=== PATIENT | female | born 1975 | race Caucasian/White ===

== ENCOUNTER 2016-07-05 12:23 | Inpatient (IN) ==
--- NOTE | 2016-07-05 12:55 | Emergency Department Note ---
Disposition Clinical Impression: Unable to ambulate Pelvic fracture Qualifiers: Encounter type: initial encounter Pelvic bone location: acetabulum Sublocation of acetabulum: unspecified portion of acetabulum Fracture type: closed Fracture alignment: nondisplaced Laterality: right Qualified Code(s): S32.401A - Unspecified fracture of right acetabulum, initial encounter for closed fracture Disposition: Admitted As Inpatient Condition: Fair Time of Disposition: 18:20 Fall HPI - General Chief Complaint: ED Extremity Injury, Lower Stated Complaint: Fall Time Seen by Provider: 07/05/16 12:30 Source: patient, EMS Nursing Notes Reviewed: Yes Vital Signs Reviewed: Yes - History of Present Illness HPI Narrative: 41-year-old female history of MRDD, walks a baseline with a walker, her mother' s her primary historian, patient apparently patient had a slip and had a mechanical fall however is questionable. She may have hit her head, she landed onto her right hip. Patient had a previous right hip surgery with Dr. Mitchell this summer 7-8 months ago. Patient reports right hip pain. Patient cannot bear weight on her right lower extremity. Patient denies confusion weakness chest pain shortness breath or abdominal pain. 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 From: standing Fall Witnessed: no Place Fall Occurred: home Loss of Consciousness: unsure Prolonged Down Time?: no Symptoms Prior to Fall: none Context: tripped/slipped Location of injury: head Location of injury - extremities: Right: hip Severity: moderate Severity scale (1-10): 6 Quality: aching Associated symptoms (after fall): Denies: headache, neck pain, numbness, weakness - Related Data Home Medications Medication Instructions Recorded Confirmed Calcium Carbonate/Vitamin D3 1 tab PO DAILY 09/06/15 09/06/15 [Calcium 500-Vit D3 400 Tablet] Esomeprazole Magnesium [Nexium] 40 mg PO DAILY 09/06/15 09/06/15 LORazepam [Ativan] 0.5 mg PO DAILY PRN 09/06/15 09/06/15 Lacosamide [Vimpat] 50 mg PO BID 09/06/15 09/06/15 Lamotrigine [Lamictal] 300 mg PO TID 09/06/15 09/06/15 LevETIRAcetam [Keppra] 1,500 mg PO BID 09/06/15 09/06/15 Levothyroxine [Synthroid] 100 mcg PO QAM 09/06/15 09/06/15 Multivit,Th Iron,Other Min 1 tab PO DAILY 09/06/15 09/06/15 [Therems-M] Norethindrone-E.estradiol-Iron 1 tab PO DAILY 09/06/15 09/06/15 [Microgestin Fe 1-20 Tablet] Phenytoin ER [Dilantin ER] 100 mg PO BID 09/06/15 09/06/15 Potassium Chloride [K-Tab ER] 10 meq PO DAILY 09/06/15 09/06/15 Zonisamide [Zonegran] 100 mg PO TID 09/06/15 09/06/15 Previous Rx's Medication Instructions Recorded Enoxaparin [Lovenox] 40 mg SQ 0600 #12 syringe 09/09/15 Megestrol Acetate [Megace] 400 mg PO DAILY #20 each 09/10/15 Allergies Allergy/AdvReac Type Severity Reaction Status Date / Time No Known Allergies Allergy Verified 07/05/16 12:38 All systems ED: reviewed and negative except as stated. Constitutional: Denies: fever, chills Respiratory: Denies: cough, dyspnea Gastrointestinal: Denies: abdominal pain, nausea Genitourinary: Denies: urgency, dysuria Musculoskeletal: Reports: as per HPI, joint swelling, arthralgia Integumentary: Denies: rash, abrasion Fall PMH - Past Medical History Medical history: Reports: seizures, thyroid disease Psychiatric history: Reports: other - Social History Smoking Status: Never smoker Alcohol use: Reports: none Drug use: Reports: none Physical Exam Constitutional: Cachectic Appearing female appears older than stated age appears very drowsy, baseline mental retardation HEENT: Temporal wasting, pale conjunctiva Neck: normal inspection, neck is supple, trachea midline Resp: normal chest inspection, CTA bilaterally, no resp distress CV: RRR, no m/g/r GI: normal inspection, Soft, NTND, BS present Back: normal inspection, no tenderness to palpation Neuro: A&O1, no gross motor or sensory deficits bilaterally MSK: Range of motion right hip limited severely unabel to test gait, right hip is adductor and internally rotated, postsurgical and incisions, no evidence of ecchymosis or laceration Psych: normal mood, normal affect Skin: No rashes, skin warm, dry, intact - General General appearance: alert Course Course Narrative: 41-year-old female with mechanical versus syncopal fall, given comorbidities will check multiple labs including CT scan right hip x-ray and the x-ray give patient's complaints not been able to bear weight on her right hipn - Reevaluation(s) Reevaluation #1: Her multiple times in the ED, the patient was not able to bear any weight, was admitted to the hospitalist for intractable pain, right hip pain, concern for occult fracture, added a head CT and admitted to Dr. Capone Reevaluation #2: After the patient was admitted, we read the hip CT head showed all and pubic ramus fractures that were nondisplaced, likely nonsurgical however I did call Dr. Nazario and Dr Capone back and told him the findings, and placed a consult orthopedist at this time. Vital Signs Temperature 97.1 F L 07/05/16 12:27 Pulse Rate 93 07/05/16 12:27 Respiratory Rate 18 07/05/16 12:27 Blood Pressure 87/64 07/05/16 12:27 O2 Sat by Pulse Oximetry 100 07/05/16 12:27 Temperature 97.4 F L 07/05/16 18:00 Pulse Rate 81 07/05/16 18:00 Respiratory Rate 16 07/05/16 18:00 Blood Pressure 94/68 07/05/16 18:00 O2 Sat by Pulse Oximetry 95 07/05/16 18:00 Oxygen Delivery Oxygen Delivery Room Air Fall - Differential Diagnosis Likely: syncope, traumatic injury, arrhythmia - Medical Records Medical records reviewed: Yes I reviewed the patient's medical records. - Lab Data Lab results reviewed: Yes I reviewed the patient's lab results. Result diagrams: 07/05/16 13:29 07/05/16 13:29 Lab Results 07/05/16 07/05/16 07/05/16 Range/Units 13:29 13:29 13:29 WBC 11.5 H (4.3-11.1) K/mcL RBC 3.65 L (3.82-4.97) M/mcL Hgb 11.1 L (11.5-15.4) g/dL Hct 34.2 L (35.3-44.9) % MCV 93.7 (83.0-100.0) fL MCH 30.4 (28.0-33.3) pg MCHC 32.5 (31.6-35.5) g/dL RDW 14.1 (11.5-14.5) % Plt Count 219 (140-400) K/mcL MPV 9.4 (9.4-12.4) fL Immature Gran % 0.8 (0-4) % Seg Neutrophils % 77.3 % Lymphocytes % 12.7 % Monocytes % 8.8 % Eosinophils % 0.1 % Basophils % 0.3 % Neutrophils # 8.9 (1.6-8.9) K/mcL Lymphocytes # 1.5 (0.6-4.6) K/mcL Monocytes # 1.0 (0.0-1.3) K/mcL Eosinophils # 0.0 (0.0-0.6) K/mcL Basophils # 0.0 (0.0-0.2) K/mcL PT 12.8 H (9.4-12.1) Seconds INR 1.2 APTT 27.9 (26.0-36.0) Seconds Sodium 141 (136-145) mEq/L Potassium 4.5 (3.5-4.5) mEq/L Chloride 113 H (98-109) mEq/L Carbon Dioxide 15 L (19-29) mEq/L BUN 21 H (7-20) mg/dL Creatinine 0.87 (0.57-1.11) mg/dL Est GFR ( Amer) > 60 (> 60) Est GFR (Non-Af Amer) > 60 (> 60) BUN/Creatinine Ratio 24 (6-26) Glucose 91 (70-99) mg/dL Calculated Osmolality 295 (280-300) Calcium 9.0 (8.6-10.8) mg/dL Creatine Kinase 75 (29-168) Units/L Troponin I (0-0.03) ng/mL TSH 1.336 (0.350-4.840) mcIU/mL Urine Color (Yellow) Urine Clarity (Clear) Urine pH (5.0-8.0) pH Units Ur Specific [place] (1.010-1.025) Urine Protein (Neg-Trace) mg/dL Urine Glucose (UA) (Normal) mg/dL Urine Ketones (Negative) mg/dL Urine Blood (Negative) Urine Nitrite (Negative) Urine Bilirubin (Negative) Urine Urobilinogen (Normal) mg/dL Ur Leukocyte Esterase (Negative) Urine Microscopic RBC (0-3) per hpf Urine Microscopic WBC (0-3) per hpf Ur Squamous Epith Cells (None-Few) per lpf Urine Bacteria Hyaline Casts (None-Few) per lpf Ur Culture Indicated? (NO) 07/05/16 07/05/16 Range/Units 13:29 14:10 WBC (4.3-11.1) K/mcL RBC (3.82-4.97) M/mcL Hgb (11.5-15.4) g/dL Hct (35.3-44.9) % MCV (83.0-100.0) fL MCH (28.0-33.3) pg MCHC (31.6-35.5) g/dL RDW (11.5-14.5) % Plt Count (140-400) K/mcL MPV (9.4-12.4) fL Immature Gran % (0-4) % Seg Neutrophils % % Lymphocytes % % Monocytes % % Eosinophils % % Basophils % % Neutrophils # (1.6-8.9) K/mcL Lymphocytes # (0.6-4.6) K/mcL Monocytes # (0.0-1.3) K/mcL Eosinophils # (0.0-0.6) K/mcL Basophils # (0.0-0.2) K/mcL PT (9.4-12.1) Seconds INR APTT (26.0-36.0) Seconds Sodium (136-145) mEq/L Potassium (3.5-4.5) mEq/L Chloride (98-109) mEq/L Carbon Dioxide (19-29) mEq/L BUN (7-20) mg/dL Creatinine (0.57-1.11) mg/dL Est GFR ( Amer) (> 60) Est GFR (Non-Af Amer) (> 60) BUN/Creatinine Ratio (6-26) Glucose (70-99) mg/dL Calculated Osmolality (280-300) Calcium (8.6-10.8) mg/dL Creatine Kinase (29-168) Units/L Troponin I 0.01 (0-0.03) ng/mL TSH (0.350-4.840) mcIU/mL Urine Color Yellow (Yellow) Urine Clarity Clear (Clear) Urine pH 6.0 (5.0-8.0) pH Units Ur Specific [place] 1.028 H (1.010-1.025) Urine Protein 30 H (Neg-Trace) mg/dL Urine Glucose (UA) Normal (Normal) mg/dL Urine Ketones Negative (Negative) mg/dL Urine Blood Trace H (Negative) Urine Nitrite Negative (Negative) Urine Bilirubin Negative (Negative) Urine Urobilinogen Normal (Normal) mg/dL Ur Leukocyte Esterase Negative (Negative) Urine Microscopic RBC 0-3 (0-3) per hpf Urine Microscopic WBC 0-3 (0-3) per hpf Ur Squamous Epith Cells Many H (None-Few) per lpf Urine Bacteria Test Not Performed Hyaline Casts None Seen (None-Few) per lpf Ur Culture Indicated? NO (NO) - Radiology Data Radiology results reviewed: Yes I reviewed the patient's radiology results. Chest X-Ray 07/05/16 12:30 IMPRESSION: No acute cardiopulmonary process. D/ / 07/05/2016 13:15:34 Ish Vasquez MD / karina Interpreting Provider: Ish Vasquez MD Head CT 07/05/16 12:30 IMPRESSION: Stable CT scan of the head with no acute intracranial abnormality identified. D/ / Kyrie Campos MD / Kyrie Campos MD Interpreting Provider: Kyrie Campos MD Hip X-Ray 07/05/16 12:31 IMPRESSION: 1. No acute abnormality. D/ / Franklin Corea MD / Franklin Corea MD Interpreting Provider: Franklin Corea MD Knee X-Ray 07/05/16 12:31 IMPRESSION: No acute abnormality of the knee. D/ / Blu Yarbrough MD / Blu Yarbrough MD Interpreting Provider: lBu Yarbrough MD Hip CT 07/05/16 17:11 IMPRESSION: 1. Acute nondisplaced fracture of the anterior aspect of right acetabulum. 2. Acute nondisplaced fracture of the right superior pubic ramus at the level of the pubic symphysis. 3. Acute nondisplaced right sacral ala fracture. D/ / Jony Green MD / Jony Green MD Interpreting Provider: Jony Green MD - EKG Data EKG attestation: Yes I reviewed and interpreted this EKG. EKG results narrative: 85 bpm QRS 82 QTC 400 EKG shows normal: sinus rhythm Rate: normal, tachycardia Rhythm: NSR Interpretation: no acute changes - Core Measures AMI Core Measures Followed: No Measure Exclusions: not indicated
[2016-07-05] MEDS: 0.9 % Sodium Chloride 1,000 ML IVC ONE ×2 (13:36→17:20)
[2016-07-05 13:39] LABS: Basophils % 0.3 %; Eosinophils % 0.1 %; Hematocrit 34.2 % (35.3-44.9); Hemoglobin 11.1 g/dL (11.5-15.4); Immature Granulocytes % 0.8 % (0-4); Lymphocytes # 1.5 K/mcL (0.6-4.6); Lymphocytes % 12.7 %; Mean Corpuscular HGB Conc 32.5 g/dL (31.6-35.5); Mean Corpuscular Hemoglobin 30.4 pg (28.0-33.3); Mean Corpuscular Volume 93.7 fL (83.0-100.0); Mean Platelet Volume 9.4 fL (9.4-12.4); Monocytes % 8.8 %; Neutrophils # 8.9 K/mcL (1.6-8.9); Platelet Count 219 K/mcL (140-400); Red Blood Count 3.65 M/mcL (3.82-4.97); Red Cell Distribution Width 14.1 % (11.5-14.5); Segmented Neutrophils % 77.3 %
[2016-07-05 13:49] LABS: INR 1.2; Prothrombin Time 12.8 Seconds (9.4-12.1)
[2016-07-05 13:51] LABS: Activated Partial Thrombo Time 27.9 Seconds (26.0-36.0)
[2016-07-05 13:53] LABS: BUN/Creatinine Ratio 24 (6-26); Blood Urea Nitrogen 21 mg/dL (7-20); Carbon Dioxide 15 mEq/L (19-29); Chloride 113 mEq/L (98-109); Creatine Kinase 75 Units/L (29-168); Glucose 91 mg/dL (70-99); Osmolality,Calculated 295 (280-300); Potassium 4.5 mEq/L (3.5-4.5); Sodium 141 mEq/L (136-145); eGFR For African Americans > 60 (> 60); eGFR For Non-African Americans > 60 (> 60)
[2016-07-05 14:14] LABS: Bilirubin,Urine Negative (Negative); Blood,Urine Trace (Negative); Clarity,Urine Clear (Clear); Color,Urine Yellow (Yellow); Glucose,Urine (UA) Normal (Normal); Ketones,Urine Negative (Negative); Leukocyte Esterase,Urine Negative (Negative); Nitrite,Urine Negative (Negative); Protein,Urine 30 mg/dL (Neg-Trace); Specific Gravity,Urine 1.028 (1.010-1.025); Urobilinogen,Urine Normal (Normal)
[2016-07-05 14:14] LABS: Thyroid Stimulating Hormone 1.336 mcIU/mL (0.350-4.840)
[2016-07-05 14:16] LABS: Hyaline Casts,Urine None Seen per lpf (None-Few); Squamous Epithelial Cell,Urine Many per lpf (None-Few); WBC,Urine 0-3 per hpf (0-3)
[2016-07-05] MEDS ORDERED: Acetaminophen 325 MG TABLET PO ONE (14:55)
[2016-07-05] MEDS ORDERED: Ibuprofen 600 MG TABLET PO ONE (14:55)
[2016-07-05 15:02] LABS: RBC,Urine 0-3 per hpf (0-3)
[2016-07-05] MEDS ORDERED: *HR* FentaNYL (PF) 100 MCG/2 ML VIAL IVP ONE ×2 (15:47→17:11)
[2016-07-05] MEDS ORDERED: 0.9 % Sodium Chloride 1,000 ML IVC ONE (17:14)
--- NOTE | 2016-07-05 18:16 | Emergency Department Note ---
START Narrative - START START: I examined this patient and my medical decision-making was reviewed with the STEEL DIE ENGRAVER/PA/Advanced Practice Nurse/Resident Physician. I agree with the documented findings, disposition and treatment plan as described except to the extent set forth below. 41-year-old female presents after a fall at home. This is unwitnessed fall the patient is complaining of right hip pain. Patient was able to ambulate at home a small distance but complained of right lower extremity pain. States the patient is at her baseline mental status. X-ray of the right hip and pelvis did not reveal acute fracture. Patient unable to ambulate after IV pain medication. CT of the right hip was ordered to rule out occult fracture and the patient was admitted to the hospitalist for further care. CT of the right hip returned with fracture of the right sacral alae, the right superior pubic rami as well as the right acetabulum. Hospitalist was updated regarding the patient's fractures. Orthopedic physician was consult regarding the patient's case and presentation and will see while admitted to the hospital.
--- NOTE | 2016-07-05 20:36 | Internal Med History&Physical ---
Date of Encounter: 07/05/16 Time of Encounter: 20:34 Assessment and Plan (1) Pelvic fracture Current visit: Yes Status: Acute Patient status post mechanical fall. Patient with underlying developmental disability. CT of the hip findings as described in the H&P and revealing acute nondisplaced fracture of the anterior aspect of the right acetabulum. Will provide pain management medications. We will request a consultation with the orthopedic surgeon for further recommendations. DVT prophylaxis according to hospital protocol. Resume home medications. Qualifiers: Encounter type: initial encounter Pelvic bone location: acetabulum Sublocation of acetabulum: unspecified portion of acetabulum Fracture type: closed Fracture alignment: nondisplaced Laterality: right Qualified Code(s ): S32.401A - Unspecified fracture of right acetabulum, initial encounter for closed fracture (2) DVT prophylaxis Current visit: No Status: Acute Internal Medicine - H&P: HPI Chief complaint: pain Admitted From: Emergency Dept Plans for Post Hospital Care: Home History of present illness: Ms. Delong is a 41 year old female with history of MRDD, walks a baseline with a walker, her mother's her primary historian as per ED records, patient apparently patient had a slip and had a mechanical fall however is questionable. She may have hit her head, she landed onto her right hip. Patient had a previous right hip surgery with Dr. Mitchell this summer 7-8 months ago. Patient reports right hip pain. Patient cannot bear weight on her right lower extremity. Patient denies confusion weakness chest pain shortness breath or abdominal pain. Hip CT which revealed acute nondisplaced fracture of them the aspect of the right acetabulum, acute nondisplaced fracture on the right superior pubic ramus. Acute nondisplaced fracture of the right sacral fracture. Head CT without acute findings. Chest x-ray without acute findings. Hemoglobin 11.1. BUN 21, creatinine 0.87, glucose 91. The patient's case was discussed with the orthopedic surgeon by the emergency department physician. Orthopedic surgeon will be consulted for further recommendations. Past Med Surg Social Fam HX - Past Medical History Medical history: seizures, thyroid disease Psychiatric history: other - Social History Smoking Status: Never smoker Smokeless Tobacco Status: No Alcohol use: none Drug use: none - Family History Brother Family Member Ethnicity: Non- Twin of Family Member: Yes, Fraternal Living Status: Still Living Hx Family Cardiac Disorders: Yes (Stent placement.) Hx Family Endocrine Disorder: Yes (Diabetes.) Mother Family Member Ethnicity: Non- Living Status: Still Living Hx Family Cardiac Disorders: No Hx Family Respiratory Disorders: No Hx Family Cancer: No Hx Family GI Disorders: No Hx Family Endocrine Disorder: No Hx Family Neuromuscular Disorders: No Hx Family Neurologic Disorders: No Hx Family HEENT Disorders: No Hx Family Autoimmune Disorders: No Internal Medicine - H&P: Meds Calcium Carbonate/Vitamin D3 [Calcium 500-Vit D3 400 Tablet] 1 tab PO DAILY 05/22 [History] Esomeprazole Magnesium [Nexium] 40 mg PO DAILY 09/06/15 [History] LORazepam [Ativan] 0.5 mg PO DAILY PRN 09/06/15 [History] Lacosamide [Vimpat] 50 mg PO BID 09/06/15 [History] Lamotrigine [Lamictal] 300 mg PO TID 09/06/15 [History] LevETIRAcetam [Keppra] 1,500 mg PO BID 09/06/15 [History] Levothyroxine [Synthroid] 100 mcg PO QAM 09/06/15 [History] Multivit,Th Iron,Other Min [Therems-M] 1 tab PO DAILY 09/06/15 [History] Norethindrone-E.estradiol-Iron [Microgestin Fe 1-20 Tablet] 1 tab PO DAILY 09/05 [History] Phenytoin ER [Dilantin ER] 100 mg PO BID 09/06/15 [History] Potassium Chloride [K-Tab ER] 10 meq PO DAILY 09/06/15 [History] Zonisamide [Zonegran] 100 mg PO TID 09/06/15 [History] Enoxaparin [Lovenox] 40 mg SQ 0600 #12 syringe 09/09/15 [Rx] Megestrol Acetate [Megace] 400 mg PO DAILY #20 each 09/10/15 [Rx] Allergies No Known Allergies Allergy (Verified 07/05/16 12:38) ROS unobtainable: due to mental status All Systems PM: A 10-system review of systems was performed and is negative for pertinent findings except as documented above in the HPI. - Constitutional Vitals: Temp Pulse Resp BP Pulse Ox 97.4 F L 81 16 94/68 95 07/05/16 18:00 07/05/16 18:00 07/05/16 18:00 07/05/16 18:00 07/05/16 18:00 General appearance: Present: cooperative, mild distress (In pain), pleasant, underweight - Head Head exam: Present: atraumatic - Eye Eye exam: Present: PERRL, conjuntiva pink, sclera anicteric Pupils: Present: PERRL - ENT Additional comments: Poor dentition. - Neck Neck exam general surgery: Present: supple, trachea midline. Absent: lymphadenopathy - Respiratory Respiratory exam: Present: CTAB. Absent: accessory muscle use, rales, rhonchi, wheezes - Cardiovascular Cardiovascular exam: Present: RRR, +S1, +S2. Absent: diastolic murmur, gallop, rubs, systolic murmur - GI/Abdominal GI/Abdominal exam: Present: normal bowel sounds, soft, no peritoneal signs. Absent: distended, tenderness - Extremities Exam Extremities exam: Present: warm, radial pulses palpable and symetrical. Absent : calf tenderness, cyanotic, pedal edema Additional comments: Shortening of the right lower extremity with external rotation. - Neurological Exam Neurological exam: Present: CN II-XII intact, oriented X3, no focal deficits. Absent: pronater drift, facial droop, speech deficit - Skin Skin exam: Present: dry, intact Internal Med - H&P Results - Labs CBC & Chem 7: 07/05/16 13:29 07/05/16 13:29
[2016-07-05] MEDS ORDERED: Naloxone 0.4 MG/ML INJ IVP PRN (20:40)
[2016-07-05] MEDS ORDERED: Ondansetron 4 MG/2 ML VIAL IVP PRN (20:40)
[2016-07-05] MEDS ORDERED: D5% in 0.45% NACL 1,000 ML IVC SCH (20:45)
[2016-07-05] MEDS: lamoTRIgine 100 MG TABLET PO SCH (22:11)
[2016-07-05] MEDS: levETIRAcetam 250 MG TABLET PO SCH (22:12)
[2016-07-06] MEDS: *HR* Morphine 2 MG/ML SYRINGE IVP PRN ×2 (02:42→17:29)
[2016-07-06 03:15] LABS: Basophils % 0.3 %; Eosinophils # 0.1 K/mcL (0.0-0.6); Eosinophils % 1.8 %; Hematocrit 28.7 % (35.3-44.9); Immature Granulocytes % 0.5 % (0-4); Lymphocytes # 2.3 K/mcL (0.6-4.6); Lymphocytes % 38.6 %; Mean Corpuscular HGB Conc 32.4 g/dL (31.6-35.5); Mean Corpuscular Hemoglobin 30.7 pg (28.0-33.3); Mean Corpuscular Volume 94.7 fL (83.0-100.0); Mean Platelet Volume 9.6 fL (9.4-12.4); Monocytes # 0.6 K/mcL (0.0-1.3); Monocytes % 9.1 %; Platelet Count 147 K/mcL (140-400); Red Blood Count 3.03 M/mcL (3.82-4.97); Red Cell Distribution Width 14.1 % (11.5-14.5); Segmented Neutrophils % 49.7 %
[2016-07-06 03:20] LABS: INR 1.3; Prothrombin Time 13.6 Seconds (9.4-12.1)
[2016-07-06 03:24] LABS: Hemoglobin 9.3 g/dL (11.5-15.4)
[2016-07-06 03:28] LABS: Alanine Aminotransferase 13 Units/L (0-55); Albumin 2.8 g/dL (3.5-5.0); Albumin/Globulin Ratio 1.1 (1.1-2.2); Alkaline Phosphatase 69 Units/L (38-126); Aspartate Amino Transferase 21 Units/L (5-34); BUN/Creatinine Ratio 18 (6-26); Bilirubin,Total 0.5 mg/dL (0.2-1.2); Blood Urea Nitrogen 13 mg/dL (7-20); Calcium 7.7 mg/dL (8.6-10.8); Carbon Dioxide 16 mEq/L (19-29); Chloride 116 mEq/L (98-109); Globulin 2.6 g/dL (2.4-3.5); Glucose 92 mg/dL (70-99); Magnesium 1.8 mg/dL (1.6-2.6); Osmolality,Calculated 286 (280-300); Potassium 3.9 mEq/L (3.5-4.5); Sodium 138 mEq/L (136-145); Total Protein 5.4 g/dL (6.0-8.3); eGFR For African Americans > 60 (> 60); eGFR For Non-African Americans > 60 (> 60)
[2016-07-06] MEDS: Famotidine 20 MG/2 ML VIAL IVP SCH ×2 (05:20→17:41)
[2016-07-06] MEDS ORDERED: Magnesium Sulfate 2 GM in D5% in Water 100 ML IVPB ONE (05:33)
[2016-07-06] MEDS: lamoTRIgine 100 MG TABLET PO SCH ×3 (10:27→20:46)
[2016-07-06] MEDS: Megestrol Acetate 400 MG/10 ML UDC PO SCH (10:28)
[2016-07-06] MEDS: Multivit/Ca/Min/Fe/FA 1 TAB TABLET PO SCH (10:28)
[2016-07-06] MEDS: levETIRAcetam 250 MG TABLET PO SCH ×2 (10:35→20:46)
--- NOTE | 2016-07-06 12:02 | Internal Med Progress Note ---
Date of Encounter: 07/06/16 Time of Encounter: 09:45 - Assessment and plan (1) Pelvic fracture Current Visit: Yes Status: Acute Assessment and plan: Pelvic fracture by CT. Pt states that she was walking to the bathroom and fell. Pt uses a walker at home. Non-displace fracture of the anterior aspect of the R acetabulum, acute non-displaced fracture of the R superior pubic ramus at the level of the pubic symphysis, ,and acute non-displaced right sacral ala fracture. Pt is sitting up in bed and states that pain is "bad". Unable to quatify the pain. Pain with palpation to R hip. No bruising or abrasions noted to R hip. Prior surgery to same hip. Ortho was consulted by ER physician. Orthopedic surgeon consult Pain control Qualifiers: Encounter type: initial encounter Pelvic bone location: acetabulum Sublocation of acetabulum: unspecified portion of acetabulum Fracture type: closed Fracture alignment: nondisplaced Laterality: right Qualified Code(s ): S32.401A - Unspecified fracture of right acetabulum, initial encounter for closed fracture (2) Hip pain, right Current Visit: No Status: Acute Assessment and plan: R pelvis fracture, prior ORIF to R hip. Pt states that pain is "bad". Plan as above. (3) Seizure disorder Current Visit: No Status: Chronic Assessment and plan: Chronic. Well- controlled. Continue home medications. (4) DVT prophylaxis Current Visit: No Status: Acute Assessment and plan: Lovenox subq - Time Spent With Patient less than 15 minutes - Constitutional Vitals: Temp Pulse Resp BP Pulse Ox 97.5 F L 70 16 120/82 96 07/06/16 10:45 07/06/16 10:45 07/06/16 10:45 07/06/16 10:45 07/06/16 10:45 General appearance: Present: cooperative, mild distress (In pain), pleasant, underweight Internal Medicine: Result - Labs CBC & Chem 7: 07/06/16 02:31 07/06/16 02:31 Labs: Short CBC 07/06/16 Range/Units 02:31 WBC 6.1 (4.3-11.1) K/mcL Hgb 9.3 L D (11.5-15.4) g/dL Hct 28.7 L (35.3-44.9) % Plt Count 147 (140-400) K/mcL Neutrophils # 3.0 (1.6-8.9) K/mcL BMP 07/06/16 02:31 Sodium 138 Potassium 3.9 Chloride 116 H Carbon Dioxide 16 L BUN 13 Creatinine 0.71 Glucose 92 Calcium 7.7 L Liver Function 07/06/16 Range/Units 02:31 Total Bilirubin 0.5 (0.2-1.2) mg/dL AST 21 (5-34) Units/L ALT 13 (0-55) Units/L Alkaline Phosphatase 69 (38-126) Units/L Albumin 2.8 L (3.5-5.0) g/dL - ABG Interpretation ABG results: PT/INR, D-dimer PT 13.6 Seconds (9.4-12.1) H 07/06/16 02:31 Consult Discharge Plan - Plan Referrals: Colt Blackburn MD [Primary Care Provider] -
--- NOTE | 2016-07-06 14:01 | Electrocardiograph Report ---
[place] [id number] Test Date: 2016-07-05 Pat Name: Darcy Delong Department: 104 Room: 3B Gender: F Junior Analyst: : 1975 Requested By: Mathew Armenta Order Number: [id number] Reading MD: Balta Polo MD Measurements Intervals [place] Rate: 85 P: NV: 0 QRS: 74 QRSD: 82 T: 5 QT: 358 QTc: 400 Interpretive Statements SUPRAVENTRICULAR RHYTHM LOW QRS VOLTAGE IN PRECORDIAL LEADS BASELINE ARTIFACT Electronically Signed On 07-06-2016 13:59:51 EDT by Balta Polo MD
[2016-07-06] MEDS: *HR* Enoxaparin 30 MG/0.3 ML SYRINGE SQ SCH (20:46)
[2016-07-07] MEDS: Famotidine 20 MG/2 ML VIAL IVP SCH ×2 (05:29→18:07)
[2016-07-07] MEDS: *HR* Enoxaparin 30 MG/0.3 ML SYRINGE SQ SCH ×2 (05:29→18:07)
[2016-07-07] MEDS: Megestrol Acetate 400 MG/10 ML UDC PO SCH (09:00)
[2016-07-07] MEDS: lamoTRIgine 100 MG TABLET PO SCH ×3 (09:01→20:31)
[2016-07-07] MEDS: Multivit/Ca/Min/Fe/FA 1 TAB TABLET PO SCH (09:01)
[2016-07-07] MEDS: levETIRAcetam 250 MG TABLET PO SCH ×2 (09:01→20:31)
--- NOTE | 2016-07-07 16:21 | Internal Med Progress Note ---
Date of Encounter: 07/07/16 Time of Encounter: 10:35 - Assessment and plan (1) Pelvic fracture Current Visit: Yes Status: Acute Assessment and plan: Patient had a mechanical fall at home and walking that the bathroom. She has undergone both displaced fracture of the anterior aspect of the right acetabulum , acute nondisplaced fracture of the right superior pubic ramus at the level of the pubic symphysis, and an acute non-displaced right sacral ala fracture. Patient is nonambulatory due to pain. She has been seen and assessed by orthopedics today. She is nonsurgical. She will follow up with orthopedics as needed. We are attempting to reach patient's mother, however the social service coordinator has not been able to reach her today. Patient will stay another night for possible placement to an ECF for rehabilitation and treatment for the pelvic fracture. Social work consult for possible placement Pain medication DVT prophylaxis. Qualifiers: Encounter type: initial encounter Pelvic bone location: acetabulum Sublocation of acetabulum: unspecified portion of acetabulum Fracture type: closed Fracture alignment: nondisplaced Laterality: right Qualified Code(s ): S32.401A - Unspecified fracture of right acetabulum, initial encounter for closed fracture (2) Hip pain, right Current Visit: No Status: Acute Assessment and plan: Due to right pelvic fracture. Patient has remote ORIF. Plan as above (3) Seizure disorder Current Visit: No Status: Chronic Assessment and plan: Chronic. Well-controlled Continue home medications (4) DVT prophylaxis Current Visit: No Status: Acute Assessment and plan: Lovenox subq - Time Spent With Patient less than 15 minutes - Subjective Interval history: Pt evaluated today at approximately 1035. Pt is sitting up in bed eating her breakfast. She denies needs or hip/leg pain. She does report pain to entire L foot, however. I will order an xray. COOPERAGE SHOP SUPERVISOR is trying to get in touch with pt's mother. Pt will potentially need to go to ECF since she is unable to bear weight and will need a higher level of care than she can receive at home. - Constitutional Vitals: Temp Pulse Resp BP Pulse Ox 98.2 F 86 15 91/64 98 07/07/16 15:38 07/07/16 15:38 07/07/16 15:38 07/07/16 15:38 07/07/16 15:38 General appearance: Present: cooperative, A&O X 2, pleasant, underweight - Head Head exam: Present: normal inspection - Eye Eye exam: Present: normal appearance - ENT ENT exam: Present: mucous membranes moist - Neck Neck exam general surgery: Present: normal inspection. Absent: lymphadenopathy , tenderness - Respiratory Respiratory exam: Absent: rales, respiratory distress, rhonchi, stridor, wheezes - Cardiovascular Cardiovascular exam: Present: RRR, +S1, +S2 - GI/Abdominal GI/Abdominal exam: Present: normal bowel sounds, soft. Absent: hepatomegaly, tenderness - Extremities Exam Extremities exam: Present: normal capillary refill, pedal edema, tenderness, warm, radial pulses palpable and symetrical Additional comments: Patient has mild foot drop bilaterally. Both feet are warm. Patient reports pain with palpation to left dorsal foot. No bruising redness swelling or drainage at that area. There is no swelling. Internal Medicine: Result - Labs CBC & Chem 7: 07/06/16 02:31 07/06/16 02:31 - ABG Interpretation ABG results: PT/INR, D-dimer PT 13.6 Seconds (9.4-12.1) H 07/06/16 02:31 Consult Discharge Plan - Plan Referrals: Colt Blackburn MD [Primary Care Provider] -
--- NOTE | 2016-07-07 16:52 | Orthopedic Consult Note ---
Date of Encounter: 07/07/16 Time of Encounter: 15:30 Assessment and Plan (1) Pelvis fracture, right Current Visit: Yes Status: Acute Xray shows patient has right superior pelvic ramus and acetabular fractures. These are non-operative at this time. Therapy to work with her. WBAT with walker. Recommend possible placement to [facility]CF for rehab therapy until she can bear weight on leg. Pain control per hospitalist. Follow up with Dr. Langston on 07/15/16 at 3:00pm. Qualifiers: Qualified Code(s): S32.9XXA - Fracture of unspecified parts of lumbosacral spine and pelvis, initial encounter for closed fracture History of Present Illness Chief complaint: right hip and leg pain HPI: Ms. Delong is a 41 year old female who presented to the ER 2 days ago after an apparent fall. Patient has h/o MRDD and is poor historian. Family not present on exam. She states she normally walks well with a walker and has had constant pain in the right hip and leg since the fall. Denies n/t. States she cannot currently bear weight on the leg secondary to pain. Denies pain anywhere else. She does have h/o right hip percutaneous pinning on 09/[address] Mitchell. Past Med Surg Social Fam HX - Past Medical History Medical history: seizures, thyroid disease Psychiatric history: other - Social History Smoking Status: Never smoker Smokeless Tobacco Status: No Alcohol use: none Drug use: none - Family History Brother Family Member Ethnicity: Non- Twin of Family Member: Yes, Fraternal Living Status: Still Living Hx Family Cardiac Disorders: Yes (Stent placement.) Hx Family Endocrine Disorder: Yes (Diabetes.) Mother Family Member Ethnicity: Non- Living Status: Still Living Hx Family Cardiac Disorders: No Hx Family Respiratory Disorders: No Hx Family Cancer: No Hx Family GI Disorders: No Hx Family Endocrine Disorder: No Hx Family Neuromuscular Disorders: No Hx Family Neurologic Disorders: No Hx Family HEENT Disorders: No Hx Family Autoimmune Disorders: No Medications and Allergies Calcium Carbonate/Vitamin D3 [Calcium 500-Vit D3 400 Tablet] 1 tab PO DAILY 05/22 [History] Esomeprazole Magnesium [Nexium] 40 mg PO DAILY 09/06/15 [History] Lacosamide [Vimpat] 50 mg PO BID 09/06/15 [History] LevETIRAcetam [Keppra] 1,500 mg PO BID 09/06/15 [History] Levothyroxine [Synthroid] 100 mcg PO QAM 09/06/15 [History] Multivit,Th Iron,Other Min [Therems-M] 1 tab PO DAILY 09/06/15 [History] Norethindrone-E.estradiol-Iron [Microgestin Fe 1-20 Tablet] 1 tab PO DAILY 09/05 [History] Phenytoin ER [Dilantin ER] 100 mg PO BID 09/06/15 [History] Potassium Chloride [K-Tab ER] 10 meq PO DAILY 09/06/15 [History] Zonisamide [Zonegran] 100 mg PO TID 09/06/15 [History] Megestrol Acetate [Megace] 400 mg PO DAILY #20 each 09/10/15 [Rx] Lamotrigine [Lamictal] 150 mg PO BID 07/05/16 [History] Lamotrigine [Lamictal] 300 mg PO DAILY 07/05/16 [History] Allergies No Known Allergies Allergy (Verified 07/05/16 12:38) ROS unobtainable: due to mental status (MRDD, poor historian) All Systems Reviewed: A 10-system review of systems was performed and is negative for pertinent findings except as documented above in the HPI. Physical Exam - Constitutional Vitals: Temp Pulse Resp BP Pulse Ox 98.2 F 86 15 91/64 98 07/07/16 15:38 07/07/16 15:38 07/07/16 15:38 07/07/16 15:38 07/07/16 15:38 - Hip right Tenderness with palpation: anterior, lateral ROM: extension: abnormal (No open wounds, eccymosis or erythema noted to RLE. Minimal swelling. ROM or right knee and hip restricted secondary to pain, good dorsiflexion of foot, no calf pain with palpation. NV intact) Results - Labs Result Diagrams: 07/06/16 02:31 07/06/16 02:31 Labs: Abnormal lab results RBC 3.03 M/mcL (3.82-4.97) L 07/06/16 02:31 Hgb 9.3 g/dL (11.5-15.4) L D 07/06/16 02:31 Hct 28.7 % (35.3-44.9) L 07/06/16 02:31 PT 13.6 Seconds (9.4-12.1) H 07/06/16 02:31 Chloride 116 mEq/L (98-109) H 07/06/16 02:31 Carbon Dioxide 16 mEq/L (19-29) L 07/06/16 02:31 Calcium 7.7 mg/dL (8.6-10.8) L 07/06/16 02:31 Serum Total Protein 5.4 g/dL (6.0-8.3) L 07/06/16 02:31 Albumin 2.8 g/dL (3.5-5.0) L 07/06/16 02:31 Ur Specific [place] 1.028 (1.010-1.025) H 07/05/16 14:10 Urine Protein 30 mg/dL (Neg-Trace) H 07/05/16 14:10 Urine Blood Trace (Negative) H 07/05/16 14:10 Ur Squamous Epith Cells Many per lpf (None-Few) H 07/05/16 14:10 All other labs normal. - Diagnostic results Hip x-ray: report reviewed, image reviewed Hip CT: report reviewed, image reviewed Knee x-ray: report reviewed, image reviewed Consult Discharge Plan - [place] [facility] [place] [facility] [place] [Primary Care Provider] - - Attending Attestation Case and plan of care discussed with supervising physician who was available for all aspects of care.
[2016-07-07] MEDS: *HR* Morphine 2 MG/ML SYRINGE IVP PRN (21:29)
[2016-07-08 05:05] LABS: Basophils # 0.1 K/mcL (0.0-0.2); Basophils % 0.7 %; Eosinophils # 0.1 K/mcL (0.0-0.6); Eosinophils % 1.7 %; Hematocrit 30.6 % (35.3-44.9); Immature Granulocytes % 0.1 % (0-4); Lymphocytes # 3.8 K/mcL (0.6-4.6); Lymphocytes % 45.9 %; Mean Corpuscular HGB Conc 32.7 g/dL (31.6-35.5); Mean Corpuscular Hemoglobin 30.8 pg (28.0-33.3); Mean Corpuscular Volume 94.2 fL (83.0-100.0); Mean Platelet Volume 9.9 fL (9.4-12.4); Monocytes # 0.8 K/mcL (0.0-1.3); Monocytes % 10.1 %; Neutrophils # 3.4 K/mcL (1.6-8.9); Platelet Count 186 K/mcL (140-400); Red Blood Count 3.25 M/mcL (3.82-4.97); Red Cell Distribution Width 14.1 % (11.5-14.5); Segmented Neutrophils % 41.5 %
[2016-07-08 05:25] LABS: BUN/Creatinine Ratio 19 (6-26); Blood Urea Nitrogen 14 mg/dL (7-20); Calcium 8.5 mg/dL (8.6-10.8); Carbon Dioxide 17 mEq/L (19-29); Chloride 113 mEq/L (98-109); Glucose 82 mg/dL (70-99); Osmolality,Calculated 286 (280-300); Potassium 4.1 mEq/L (3.5-4.5); Sodium 138 mEq/L (136-145); eGFR For African Americans > 60 (> 60); eGFR For Non-African Americans > 60 (> 60)
[2016-07-08] MEDS: Famotidine 20 MG/2 ML VIAL IVP SCH (05:49)
[2016-07-08] MEDS: *HR* Enoxaparin 30 MG/0.3 ML SYRINGE SQ SCH ×2 (05:49→17:57)
[2016-07-08] MEDS ORDERED: 0.9 % Sodium Chloride 250 ML IVC PRN (08:12)
--- NOTE | 2016-07-08 08:28 | Internal Med Progress Note ---
Date of Encounter: 07/08/16 Time of Encounter: 08:28 - Assessment and plan (1) Pelvis fracture, right Current Visit: Yes Status: Acute Assessment and plan: Patient had mechanical fall at home during ambulation with a walker. Right superior pelvic ramus and acetabular fractures and an acute non-displaced right sacral ala fracture. These are non-operative at this time per ortho. Non-weight bearing at this time, patient states pain is well controlled. PT has evaluated the patient and recommends rehab at [facility]. With amount of fractures in a 41 y/o on multiple anti-convulsants there is suspicion for osteoporosis. Will check Vitamin D, recommend further evaluation by PCP as outpatient. Plan: -Check Vit D -Continue PT, WBAT with walker -Awaiting placement to [facility] for rehab, social work consulted -Continue to control pain, will stop morphine and transition her to oral pain meds prn anticipating discharge as soon as placement is set up Qualifiers: Encounter type: initial encounter Fracture type: closed Qualified Code(s) : S32.9XXA - Fracture of unspecified parts of lumbosacral spine and pelvis, initial encounter for closed fracture (2) Hip pain, right Current Visit: No Status: Acute Assessment and plan: Secondary to right pelvic fracture. Patient has remote ORIF. non-operable fractures Plan as above (3) Seizure disorder Current Visit: No Status: Chronic Assessment and plan: Chronic, 2010 VNS stimulator placed. Plan: -Continue home medications (4) DVT prophylaxis Current Visit: No Status: Acute Assessment and plan: Lovenox SQ - Subjective Interval history: Patient seen and examined. She is sleeping in bed upon my entering. She arouses easily. She denies any complaints at this time, states that her pain is well controlled. - Constitutional Vitals: Temp Pulse Resp BP Pulse Ox 97.9 F 72 14 87/52 98 07/08/16 06:59 07/08/16 06:59 07/08/16 06:59 07/08/16 06:59 07/08/16 06:59 General appearance: Present: cooperative, pleasant, no acute distress, underweight Exam: Left sided temporal bone deformities and scarring - ENT ENT exam: Present: mucous membranes moist Additional comments: poor dentition - Respiratory Respiratory exam: Present: CTAB. Absent: accessory muscle use, rales, rhonchi, wheezes - Cardiovascular Cardiovascular exam: Present: RRR, +S1, +S2. Absent: diastolic murmur, gallop, rubs, systolic murmur - GI/Abdominal GI/Abdominal exam: Present: normal bowel sounds, soft, no peritoneal signs. Absent: distended, tenderness - Extremities Exam Extremities exam: Present: pedal edema (right), tenderness (right hip), warm, radial pulses palpable and symetrical. Absent: calf tenderness, cyanotic Additional comments: no erythema or echymosis of the right hip - Psychiatric Psychiatric exam: Present: normal affect, normal mood - Skin Skin exam: Present: dry, intact, warm. Absent: cyanosis, diaphoretic, erythema , rash Internal Medicine: Result - Labs CBC & Chem 7: 07/08/16 04:32 07/08/16 04:32 Labs: Short CBC 07/08/16 Range/Units 04:32 WBC 8.2 (4.3-11.1) K/mcL Hgb 10.0 L (11.5-15.4) g/dL Hct 30.6 L (35.3-44.9) % Plt Count 186 (140-400) K/mcL Neutrophils # 3.4 (1.6-8.9) K/mcL BMP 07/08/16 04:32 Sodium 138 Potassium 4.1 Chloride 113 H Carbon Dioxide 17 L BUN 14 Creatinine 0.73 Glucose 82 Calcium 8.5 L - ABG Interpretation ABG results: PT/INR, D-dimer PT 13.6 Seconds (9.4-12.1) H 07/06/16 02:31 - Impressions Impressions Foot X-Ray 07/07/16 16:21 IMPRESSION: No acute osseous abnormality. Mild 1st MTP degenerative change. D/ / 07/07/2016 22:01:51 Manny Hicks MD / klever Interpreting Provider: Manny Hicks MD - Diagnostic Studies Other Images Status: image reviewed by me Additional comments: Chest X-Ray 07/05/16 12:30 IMPRESSION: No acute cardiopulmonary process. D/ / 07/05/2016 13:15:34 Ish Vasquez MD / karina Interpreting Provider: Ish Vasquez MD Head CT 07/05/16 12:30 IMPRESSION: Stable CT scan of the head with no acute intracranial abnormality identified. D/ / Kyrie Campos MD / Kyrie Campos MD Interpreting Provider: Kyrie Campos MD Hip X-Ray 07/05/16 12:31 IMPRESSION: 1. No acute abnormality. D/ / Franklin Corea MD / Franklin Corea MD Interpreting Provider: Franklin Corea MD Knee X-Ray 07/05/16 12:31 IMPRESSION: No acute abnormality of the knee. D/ / Blu Yarbrough MD / Blu Yarbrough MD Interpreting Provider: Blu Yarbrough MD Hip CT 07/05/16 17:11 IMPRESSION: 1. Acute nondisplaced fracture of the anterior aspect of right acetabulum. 2. Acute nondisplaced fracture of the right superior pubic ramus at the level of the pubic symphysis. 3. Acute nondisplaced right sacral ala fracture. D/ / Jony Green MD / Jony Green MD Interpreting Provider: Jony Green MD Foot X-Ray 07/07/16 16:21 IMPRESSION: No acute osseous abnormality. Mild 1st MTP degenerative change. D/ / 07/07/2016 22:01:51 Manny Hicks MD / klever Interpreting Provider: Manny Hicks MD Consult Discharge Plan - Plan Referrals: [facility] – [place],Colt Galvez MD [Primary Care Provider] -
[2016-07-08] MEDS: levETIRAcetam 250 MG TABLET PO SCH ×2 (09:43→21:34)
[2016-07-08] MEDS: Megestrol Acetate 400 MG/10 ML UDC PO SCH (09:44)
[2016-07-08] MEDS: Multivit/Ca/Min/Fe/FA 1 TAB TABLET PO SCH (09:44)
[2016-07-08] MEDS: lamoTRIgine 100 MG TABLET PO SCH ×3 (09:44→21:34)
[2016-07-08] MEDS ORDERED: *HR* HYDROcodone/Acet 5/325 mg TABLET PO PRN (10:32)
--- NOTE | 2016-07-08 17:37 | Physician Discharge Referral ---
ExtendedCare Referral Info Transfer To: [facility] Provider in Charge after Transfer: PCP Institutional Level of Care: Skilled - Diagnosis (1) Pelvis fracture, right Priority: Primary Status: Acute (2) Hip pain, right Status: Acute (3) Seizure disorder Status: Chronic (4) DVT prophylaxis Status: Acute - Transfer Medications Home Medications: Calcium Carbonate/Vitamin D3 [Calcium 500-Vit D3 400 Tablet] 1 tab PO DAILY 05/22 [History] Esomeprazole Magnesium [Nexium] 40 mg PO DAILY 09/06/15 [History] Lacosamide [Vimpat] 50 mg PO BID 09/06/15 [History] LevETIRAcetam [Keppra] 1,500 mg PO BID 09/06/15 [History] Levothyroxine [Synthroid] 100 mcg PO QAM 09/06/15 [History] Multivit,Th Iron,Other Min [Therems-M] 1 tab PO DAILY 09/06/15 [History] Norethindrone-E.estradiol-Iron [Microgestin Fe 1-20 Tablet] 1 tab PO DAILY 09/05 [History] Phenytoin ER [Dilantin ER] 100 mg PO BID 09/06/15 [History] Potassium Chloride [K-Tab ER] 10 meq PO DAILY 09/06/15 [History] Zonisamide [Zonegran] 100 mg PO TID 09/06/15 [History] Megestrol Acetate [Megace] 400 mg PO DAILY #20 each 09/10/15 [Rx] Lamotrigine [Lamictal] 150 mg PO BID 07/05/16 [History] Lamotrigine [Lamictal] 300 mg PO DAILY 07/05/16 [History] Allergies/Adverse Reactions: Allergies No Known Allergies Allergy (Verified 07/05/16 12:38) - Respiratory Orders Smoking Cessation: Smoking cessation has been advised. For more information, call the [place] Tobacco Quit Line at 5-252-EIMP-NOW. - Advance Directives Code Status: Full Code - Mobility Orders Ambulate - Rehabiliation Orders Rehab Potential: Good Rehab Orders: Evaluation for Physical Therapy, Evaluation for Occupational Therapy - Diet Orders Regular CERTIFICATION: I certify that the transfer of the above named patient to an Extended Care Facility is necessary for the continuing treatment of the diagnosis listed. The above information is true and accurate reflection of patient's current condition. Confidential - Redisclosure prohibited without a patient's written consent.
--- NOTE | 2016-07-08 18:37 | Discharge Summary ---
<Apoorva Flores - Last Filed: 07/08/16 19:48> Date of Encounter: 07/08/16 Time of Encounter: 18:32 - Discharge Diagnosis (1) Pelvis fracture, right Priority: Primary Status: Acute Qualifiers: Encounter type: initial encounter Fracture type: closed Qualified Code(s) : S32.9XXA - Fracture of unspecified parts of lumbosacral spine and pelvis, initial encounter for closed fracture (2) Hip pain, right Priority: Primary Status: Acute (3) Seizure disorder Priority: Secondary Status: Chronic (4) DVT prophylaxis Priority: Primary Status: Acute - Discharge Medications Prescriptions: HYDROcodone/Acet 5/325 mg [[place] 5-325 mg] 1 tab PO Q6H PRN #5 tablet PRN Reason: Moderate Pain Home Medications: Calcium Carbonate/Vitamin D3 [Calcium 500-Vit D3 400 Tablet] 1 tab PO DAILY 05/22 [History] Esomeprazole Magnesium [Nexium] 40 mg PO DAILY 09/06/15 [History] Lacosamide [Vimpat] 50 mg PO BID 09/06/15 [History] LevETIRAcetam [Keppra] 1,500 mg PO BID 09/06/15 [History] Levothyroxine [Synthroid] 100 mcg PO QAM 09/06/15 [History] Multivit,Th Iron,Other Min [Therems-M] 1 tab PO DAILY 09/06/15 [History] Norethindrone-E.estradiol-Iron [Microgestin Fe 1-20 Tablet] 1 tab PO DAILY 09/05 [History] Phenytoin ER [Dilantin ER] 100 mg PO BID 09/06/15 [History] Potassium Chloride [K-Tab ER] 10 meq PO DAILY 09/06/15 [History] Zonisamide [Zonegran] 100 mg PO TID 09/06/15 [History] Megestrol Acetate [Megace] 400 mg PO DAILY #20 each 09/10/15 [Rx] Lamotrigine [Lamictal] 150 mg PO BID 07/05/16 [History] Lamotrigine [Lamictal] 300 mg PO DAILY 07/05/16 [History] HYDROcodone/Acet 5/325 mg [[place] 5-325 mg] 1 tab PO Q6H PRN #5 tablet 07/08/16 [ Rx] Allergies/Adverse Reactions: Allergies No Known Allergies Allergy (Verified 07/05/16 12:38) Date of admission: 07/05/16 20:40 Primary care physician: Colt Blackburn MD Consults: 07/05/16 20:46 Consult to Supermarket Manager [CONS] Routine Reason for SW Consult: hip fracure rehab vs home with services 07/06/16 17:32 Consult to Physician [CONS] Routine Consulting Provider: Onur Nazario Reason for Consult: pelvic fx Time Notified: 17:37 Call Completed: No 07/06/16 17:38 Consult to Occupational Therapy [CONS] Routine Comment: Evaluate, develop and implement POC 07/08/16 08:13 Consult to Physical Therapy [CONS] Stat Comment: Evaluate, develop and implement POC Discharging clinician: Darren Quispe Anticipated date of discharge: 07/08/16 - Patient Status Disposition: Transfer Inpatient Rehab Fac Condition: Fair Functional capacity at discharge: uses cane/walker Overall status at discharge: patient is progressing back to baseline - Discharge Instructions Follow Up With: Colt Blackburn MD [Primary Care Provider] - Additional Instructions: Follow up with your PCP within 1 week. Follow up with ortho Dr. Langston on 07/15/16 at 3:00pm. - Diet and Activity Activity: ambulate only with your walker, as per physical therapy Diet: advance to your usual diet Hospital course: Ms. Delong is a 41 year old female with history of MRDD, walks a baseline with a walker, her mother's her primary historian as per ED records, patient apparently patient had a slip and had a mechanical fall however is questionable. She may have hit her head, she landed onto her right hip. Patient had a previous right hip surgery with Dr. Mitchell this summer 7-8 months ago. Patient reports right hip pain. Patient cannot bear weight on her right lower extremity. Patient denies confusion weakness chest pain shortness breath or abdominal pain. Hip CT which revealed acute non-displaced fracture of them the aspect of the right acetabulum, acute non-displaced fracture on the right superior pubic ramus. Acute non-displaced fracture of the right sacral fracture. Head CT without acute findings. Chest x-ray without acute findings. Ortho was consulted on the patient and evalutated her. They deemed her to be non -operative at this time. They recommended PT to work with her, WBAT with walker and placement to [facility] for rehab therapy until she can bear weight on the right leg. She reported pain to entire Left foot during her stay, an XR was negative for fracture. The patient was working with PT who recommend her for rehab. She has been weaned of off IV pain medication and has not required her PRN norco today. She did complain of right shoulder pain during therapy today, with pain to palpation of the acetabulum and AC joint with no obvious deformity, eccymosis or erythema. Right shoulder XR done prior to discharge was negative for fracture or dislocation. Her XRays do demonstrate demineralization which could be osteoporosis and she may warrant a workup as an outpatient. Patient will be discharged to [facility] in stable condition for rehab in stable condition. - Time Spent with Patient Total time spent providing and/or coordinating discharge services: - Constitutional Vitals: Temp Pulse Resp BP Pulse Ox 98.3 F 72 14 93/64 95 07/08/16 15:05 07/08/16 15:05 07/08/16 15:05 07/08/16 15:05 07/08/16 15:05 General appearance: Present: cooperative, pleasant, no acute distress, underweight - Head Additional comments: Left sided temporal bone deformities and scarring - Respiratory Respiratory exam: Present: CTAB. Absent: accessory muscle use, rales, rhonchi, wheezes - Cardiovascular Cardiovascular exam: Present: RRR, +S1, +S2. Absent: diastolic murmur, gallop, rubs, systolic murmur - GI/Abdominal GI/Abdominal exam: Present: normal bowel sounds, soft, no peritoneal signs. Absent: distended, tenderness - Extremities Exam Extremities exam: Present: warm, radial pulses palpable and symetrical. Absent : calf tenderness, cyanotic, pedal edema - Expanded Upper Extremities Exam Shoulder exam: Present: tenderness (right), tenderness over AC joint (right). Absent: ecchymosis, erythema, swelling - Expanded Lower Extremities Exam Hip exam: Present: tenderness (right). Absent: ecchymosis, erythema, pelvic stability - Neurological Exam Neurological exam: Present: alert - Psychiatric Psychiatric exam: Present: normal affect, normal mood - Skin Skin exam: Present: dry, intact. Absent: cyanosis, diaphoretic, erythema <Darren Quispe - Last Filed: 07/10/16 11:24> Date of Encounter: 07/10/16 Date of admission: 07/05/16 20:40 Primary care physician: Colt Blackburn MD Consults: 07/05/16 20:46 Consult to Supermarket Manager [CONS] Routine Reason for SW Consult: hip fracure rehab vs home with services 07/06/16 17:32 Consult to Physician [CONS] Routine Consulting Provider: Onur Nazario Reason for Consult: pelvic fx Time Notified: 17:37 Call Completed: No 07/06/16 17:38 Consult to Occupational Therapy [CONS] Routine Comment: Evaluate, develop and implement POC 07/08/16 08:13 Consult to Physical Therapy [CONS] Stat Comment: Evaluate, develop and implement POC Hospital course: Ms. Delong is a 41 year old female - Time Spent with Patient Total time spent providing and/or coordinating discharge services: - Constitutional Vitals: Temp Pulse Resp BP Pulse Ox 97.3 F L 82 16 91/62 98 07/08/16 19:51 07/08/16 19:51 07/08/16 19:51 07/08/16 19:51 07/08/16 19:51 - Attending Attestation This DC, given note, discussion with the Residents, as well as the visit and paperwork took greater than 30 min.
[2016-07-08 19:54] VITALS: BP 91/62
== END 2016-07-08 22:10 | DRG 536 ==
LOC: 3BNU 12:23 → EMEROO 12:23 → 3BNU 17:52 → SUATTDRO 20:40
PROVIDERS: ADMIT Hospitalist; ATTEND Internal Medicine

== ENCOUNTER 2020-12-07 09:08 | Inpatient (IN) ==
[2020-12-07] MEDS ORDERED: Ondansetron 4 MG/2 ML VIAL IVP ONE (09:16)
[2020-12-07] MEDS ORDERED: 0.9 % Sodium Chloride 500 ML IVC ONE (09:16)
[2020-12-07 10:09] LABS: Hematocrit 32.7 % (35.3-44.9); Hemoglobin 10.5 g/dL (11.5-15.4); Mean Corpuscular HGB Conc 32.1 g/dL (31.6-35.5); Mean Corpuscular Hemoglobin 28.8 pg (28.0-33.3); Mean Corpuscular Volume 89.6 fL (83.0-100.0); Mean Platelet Volume 9.4 fL (9.4-12.4); Platelet Count 226 K/mcL (140-400); Red Blood Count 3.65 M/mcL (3.82-4.97); Red Cell Distribution Width 13.8 % (11.5-14.5); White Blood Count 8.6 K/mcL (4.3-11.1)
[2020-12-07 10:24] LABS: Alanine Aminotransferase 9 Units/L (7-52); Albumin 4.1 g/dL (3.5-5.7); Albumin/Globulin Ratio 1.5 (1.1-2.2); Alkaline Phosphatase 73 Units/L (34-104); Aspartate Amino Transferase 20 Units/L (13-39); BUN/Creatinine Ratio 20 (6-26); Bilirubin,Direct 0.1 mg/dL (0.0-0.2); Bilirubin,Indirect 0.2 mg/dL (0.0-1.0); Bilirubin,Total 0.3 mg/dL (0.3-1.0); Blood Urea Nitrogen 20 mg/dL (6-20); Calcium 9.2 mg/dL (8.6-10.3); Chloride 108 mEq/L (98-107); Globulin 2.7 g/dL (2.4-3.5); Glucose 135 mg/dL (70-105); Lipase 33 Units/L (11-82); Osmolality,Calculated 293 (280-300); Potassium 3.1 mEq/L (3.5-5.1); Sodium 139 mEq/L (136-145); Total Protein 6.8 g/dL (6.4-8.9); eGFR For African Americans > 60 (> 60); eGFR For Non-African Americans 59 (> 60)
[2020-12-07 10:38] LABS: Thyroid Stimulating Hormone 0.699 mcIU/mL (0.340-5.600)
[2020-12-07 10:43] LABS: Carbon Dioxide 23 mEq/L (23-29)
[2020-12-07] MEDS ORDERED: Potassium Chloride Elixir 20 MEQ/15 ML UDC PO ONE (12:02)
[2020-12-07 13:35] LABS: Bacteria,Urine Few per hpf (None-Few); Bilirubin,Urine Negative (Negative); Blood,Urine Trace (Negative); Clarity,Urine Turbid (Clear); Color,Urine Yellow (Yellow); Glucose,Urine (UA) Normal (Normal); Hyaline Casts,Urine Few per lpf (None Seen); Ketones,Urine Negative (Negative); Leukocyte Esterase,Urine Large (Negative); Mucus,Urine Few per lpf (None-Few); Nitrite,Urine Negative (Negative); PH,Urine 6.5 pH Units (5.0-8.0); Protein,Urine 30 mg/dL (Neg-Trace); RBC,Urine 15-30 per hpf (0-3); Specific Gravity,Urine 1.029 (1.010-1.025); Squamous Epithelial Cell,Urine Few per hpf (None-Few); Urobilinogen,Urine Normal (Normal); WBC,Urine TNTC per hpf (0-3)
[2020-12-07] MEDS ORDERED: Cefuroxime PO 500 MG TABLET PO ONE (13:56)
[2020-12-07] MEDS ORDERED: Ondansetron 4 MG/2 ML VIAL IVP PRN (14:19)
[2020-12-07] MEDS ORDERED: Naloxone 0.4 MG/ML INJ IVP PRN (14:19)
[2020-12-07] MEDS: *HR* Heparin 5,000 UNIT/ML VIAL SQ SCH (18:09)
[2020-12-08 01:36] LABS: BUN/Creatinine Ratio 18 (6-26); Blood Urea Nitrogen 18 mg/dL (6-20); Calcium 9.5 mg/dL (8.6-10.3); Carbon Dioxide 19 mEq/L (23-29); Chloride 109 mEq/L (98-107); Glucose 75 mg/dL (70-105); Osmolality,Calculated 283 (280-300); Sodium 136 mEq/L (136-145); eGFR For African Americans > 60 (> 60); eGFR For Non-African Americans 60 (> 60)
[2020-12-08] MEDS: *HR* Heparin 5,000 UNIT/ML VIAL SQ SCH ×2 (05:15→17:42)
[2020-12-08] MEDS: cefTRIAXone 1,000 MG in Water for inj. (sterile) 10 ML IVP SCH (09:21)
[2020-12-08] MEDS: 0.9 % Sodium Chloride 1,000 ML IVC SCH (11:45)
[2020-12-08] MEDS: Zonisamide 100 MG CAPSULE PO SCH ×2 (11:46→19:06)
[2020-12-08] MEDS: lamoTRIgine 100 MG TABLET PO SCH ×2 (11:46→19:07)
[2020-12-08 11:52] LABS: Basophils # 0.1 K/mcL (0.0-0.2); Basophils % 0.9 %; Eosinophils # 0.2 K/mcL (0.0-0.6); Eosinophils % 2.1 %; Hematocrit 34.5 % (35.3-44.9); Hemoglobin 11.1 g/dL (11.5-15.4); Immature Granulocytes % 0.4 % (0-4); Lymphocytes # 4.3 K/mcL (0.6-4.6); Lymphocytes % 44.9 %; Mean Corpuscular HGB Conc 32.2 g/dL (31.6-35.5); Mean Corpuscular Hemoglobin 28.9 pg (28.0-33.3); Mean Corpuscular Volume 89.8 fL (83.0-100.0); Mean Platelet Volume 9.2 fL (9.4-12.4); Monocytes # 0.6 K/mcL (0.0-1.3); Monocytes % 6.7 %; Neutrophils # 4.3 K/mcL (1.6-8.9); Platelet Count 228 K/mcL (140-400); Red Blood Count 3.84 M/mcL (3.82-4.97); Red Cell Distribution Width 13.6 % (11.5-14.5); White Blood Count 9.5 K/mcL (4.3-11.1)
[2020-12-08] MEDS ORDERED: 0.9 % Sodium Chloride 250 ML IV ONE (15:49)
[2020-12-08] MEDS: levETIRAcetam 500 MG/5 ML UDC PO SCH (19:07)
[2020-12-09] MEDS: *HR* Heparin 5,000 UNIT/ML VIAL SQ SCH ×2 (05:23→16:21)
[2020-12-09] MEDS: 0.9 % Sodium Chloride 1,000 ML IVC SCH ×2 (05:38→11:34)
[2020-12-09] MEDS: cefTRIAXone 1,000 MG in Water for inj. (sterile) 10 ML IVP SCH (08:08)
[2020-12-09] MEDS: levETIRAcetam 500 MG/5 ML UDC PO SCH ×2 (08:08→20:50)
[2020-12-09] MEDS: Multivit/Ca/Min/Fe/FA 1 TAB TABLET PO SCH (08:10)
[2020-12-09] MEDS: lamoTRIgine 100 MG TABLET PO SCH ×3 (08:10→20:50)
[2020-12-09] MEDS: Zonisamide 100 MG CAPSULE PO SCH ×2 (08:10→20:50)
[2020-12-10] MEDS: *HR* Heparin 5,000 UNIT/ML VIAL SQ SCH ×2 (06:10→16:39)
[2020-12-10] MEDS: lamoTRIgine 100 MG TABLET PO SCH ×3 (08:02→21:41)
[2020-12-10] MEDS: Zonisamide 100 MG CAPSULE PO SCH ×2 (08:02→21:42)
[2020-12-10] MEDS: Multivit/Ca/Min/Fe/FA 1 TAB TABLET PO SCH (08:02)
[2020-12-10] MEDS: levETIRAcetam 500 MG/5 ML UDC PO SCH ×2 (08:02→21:42)
[2020-12-10] MEDS ORDERED: cefTRIAXone 1,000 MG in Water for inj. (sterile) 10 ML IVP ONE (12:04)
[2020-12-10] MEDS ORDERED: Acetaminophen 325 MG TABLET PO ONE (13:36)
[2020-12-11] MEDS: *HR* Heparin 5,000 UNIT/ML VIAL SQ SCH ×3 (05:42→18:22)
[2020-12-11] MEDS: Zonisamide 100 MG CAPSULE PO SCH ×2 (09:31→21:21)
[2020-12-11] MEDS: Multivit/Ca/Min/Fe/FA 1 TAB TABLET PO SCH (09:31)
[2020-12-11] MEDS: levETIRAcetam 500 MG/5 ML UDC PO SCH ×2 (09:33→21:21)
[2020-12-11] MEDS: lamoTRIgine 100 MG TABLET PO SCH ×3 (09:36→21:21)
[2020-12-11] MEDS: cefTRIAXone 1,000 MG in Water for inj. (sterile) 10 ML IVP SCH (14:46)
[2020-12-12 01:58] LABS: Basophils # 0.1 K/mcL (0.0-0.2); Basophils % 1.1 %; Eosinophils # 0.3 K/mcL (0.0-0.6); Eosinophils % 2.9 %; Hematocrit 33.5 % (35.3-44.9); Hemoglobin 10.7 g/dL (11.5-15.4); Immature Granulocytes % 0.6 % (0-4); Lymphocytes # 3.7 K/mcL (0.6-4.6); Lymphocytes % 37.2 %; Mean Corpuscular HGB Conc 31.9 g/dL (31.6-35.5); Mean Corpuscular Hemoglobin 28.7 pg (28.0-33.3); Mean Corpuscular Volume 89.8 fL (83.0-100.0); Mean Platelet Volume 9.7 fL (9.4-12.4); Monocytes # 0.8 K/mcL (0.0-1.3); Monocytes % 7.9 %; Platelet Count 253 K/mcL (140-400); Red Blood Count 3.73 M/mcL (3.82-4.97); Red Cell Distribution Width 14.4 % (11.5-14.5); Segmented Neutrophils % 50.3 %
[2020-12-12 02:12] LABS: BUN/Creatinine Ratio 24 (6-26); Blood Urea Nitrogen 23 mg/dL (6-20); Calcium 9.1 mg/dL (8.6-10.3); Carbon Dioxide 22 mEq/L (23-29); Chloride 108 mEq/L (98-107); Glucose 80 mg/dL (70-105); Osmolality,Calculated 291 (280-300); Potassium 4.3 mEq/L (3.5-5.1); Sodium 139 mEq/L (136-145); eGFR For African Americans > 60 (> 60); eGFR For Non-African Americans > 60 (> 60)
[2020-12-12] MEDS: *HR* Heparin 5,000 UNIT/ML VIAL SQ SCH ×2 (04:47→18:29)
[2020-12-12] MEDS: cefTRIAXone 1,000 MG in Water for inj. (sterile) 10 ML IVP SCH (09:31)
[2020-12-12] MEDS: levETIRAcetam 500 MG/5 ML UDC PO SCH (09:32)
[2020-12-12] MEDS: lamoTRIgine 100 MG TABLET PO SCH ×2 (09:32→11:49)
[2020-12-12] MEDS: Multivit/Ca/Min/Fe/FA 1 TAB TABLET PO SCH (09:32)
[2020-12-12] MEDS: Zonisamide 100 MG CAPSULE PO SCH (09:33)
[2020-12-12] MEDS ORDERED: 0.9 % Sodium Chloride 250 ML IVC ONE (11:28)
[2020-12-12 15:01] LABS: Influenza A PCR Negative (Negative); Influenza B PCR Negative (Negative); Resp. Syncytial Virus PCR Negative (Negative); SARS-CoV-2 by PCR (In House) Negative (Negative)
[2020-12-12 19:04] VITALS: BP 94/66; PULSE 85; TEMP 98.3; O2SAT 98
== END 2020-12-12 19:15 | DRG 690 ==
LOC: EMEROOARM 09:08 → 3BNU 09:08 → SUATTDRO 14:08 → 3BNU 15:43 → SUATTDRO 12-08 20:09
PROVIDERS: ADMIT Internal Medicine; ATTEND Internal Medicine

== ENCOUNTER 2021-02-06 18:52 | Inpatient (IN) ==
[2021-02-06 22:16] LABS: Bacteria,Urine Few per hpf (None-Few); Bilirubin,Urine Negative (Negative); Blood,Urine Moderate (Negative); Clarity,Urine Clear (Clear); Color,Urine Yellow (Yellow); Glucose,Urine (UA) Normal (Normal); Hyaline Casts,Urine Few per lpf (None Seen); Ketones,Urine 60 mg/dL (Negative); Leukocyte Esterase,Urine Negative (Negative); Mucus,Urine Few per lpf (None-Few); Nitrite,Urine Negative (Negative); PH,Urine 5.5 pH Units (5.0-8.0); Protein,Urine 50 mg/dL (Neg-Trace); RBC,Urine 15-30 per hpf (0-3); Specific Gravity,Urine > 1.030 (1.010-1.025); Squamous Epithelial Cell,Urine Few per hpf (None-Few); Urobilinogen,Urine Normal (Normal); WBC,Urine 0-3 per hpf (0-3)
[2021-02-06 23:11] LABS: Basophils % 0.4 %; Eosinophils # 0.1 K/mcL (0.0-0.6); Eosinophils % 0.6 %; Hemoglobin 11.7 g/dL (11.5-15.4); Immature Granulocytes % 0.5 % (0-4); Lymphocytes # 2.8 K/mcL (0.6-4.6); Lymphocytes % 27.2 %; Mean Corpuscular HGB Conc 31.6 g/dL (31.6-35.5); Mean Corpuscular Volume 91.6 fL (83.0-100.0); Mean Platelet Volume 9.8 fL (9.4-12.4); Monocytes # 0.7 K/mcL (0.0-1.3); Neutrophils # 6.6 K/mcL (1.6-8.9); Platelet Count 164 K/mcL (140-400); Red Blood Count 4.04 M/mcL (3.82-4.97); Red Cell Distribution Width 13.7 % (11.5-14.5); Segmented Neutrophils % 64.3 %; White Blood Count 10.2 K/mcL (4.3-11.1)
[2021-02-07] MEDS ORDERED: 0.9 % Sodium Chloride 1,000 ML IVC ONE (00:36)
[2021-02-07] MEDS ORDERED: Melatonin 3 MG TABLET PO PRN ×2 (00:59→07:31)
[2021-02-07] MEDS ORDERED: Naloxone 0.4 MG/ML INJ IVP PRN ×2 (00:59→07:31)
[2021-02-07] MEDS ORDERED: Isovue-370 500 ML BOTTLE IVP ONE (01:06)
[2021-02-07 01:43] LABS: Alanine Aminotransferase 10 Units/L (7-52); Albumin 4.7 g/dL (3.5-5.7); Albumin/Globulin Ratio 1.6 (1.1-2.2); Alkaline Phosphatase 76 Units/L (34-104); Aspartate Amino Transferase 28 Units/L (13-39); BUN/Creatinine Ratio 18 (6-26); Bilirubin,Direct 0.1 mg/dL (0.0-0.2); Bilirubin,Indirect 0.2 mg/dL (0.0-1.0); Bilirubin,Total 0.3 mg/dL (0.3-1.0); Blood Urea Nitrogen 16 mg/dL (6-20); Calcium 9.4 mg/dL (8.6-10.3); Carbon Dioxide 15 mEq/L (23-29); Chloride 108 mEq/L (98-107); Glucose 80 mg/dL (70-105); Magnesium 2.2 mg/dL (1.6-2.6); Osmolality,Calculated 284 (280-300); Potassium 4.3 mEq/L (3.5-5.1); Sodium 137 mEq/L (136-145); Thyroid Stimulating Hormone 0.748 mcIU/mL (0.340-5.600); Total Protein 7.7 g/dL (6.4-8.9); eGFR For African Americans > 60 (> 60); eGFR For Non-African Americans > 60 (> 60)
[2021-02-07] MEDS ORDERED: Hyaluronidase 200 UNIT in 0.9 % Sodium Chloride 10 ML SQ ONE (02:55)
[2021-02-07] MEDS ORDERED: cefTRIAXone 1,000 MG in 0.9 % Sodium Chloride Mini Bag 100 ML IVPB ONE (03:13)
[2021-02-07] MEDS ORDERED: 0.9 % Sodium Chloride 500 ML IVC ONE (03:13)
[2021-02-07 05:26] LABS: VBG HCO3 21 mEq/L (21-27); VBG PCO2 48 mmHg (41-51); VBG PH 7.25 pH Units (7.32-7.42); VBG PO2 59 mmHg (25-50)
[2021-02-07] MEDS ORDERED: *HR* Heparin 5,000 UNIT/ML VIAL SQ SCH (06:00)
[2021-02-07] MEDS ORDERED: Ondansetron 4 MG/2 ML VIAL IVP PRN (07:31)
[2021-02-07] MEDS ORDERED: MOM Conc 10 ML UD.LIQ PO PRN (07:31)
[2021-02-07] MEDS ORDERED: Acetaminophen 325 MG TABLET PO PRN (07:31)
[2021-02-07] MEDS ORDERED: Mag Hydrox/Al Hydrox/Simeth 30 ML UDC PO PRN (07:31)
[2021-02-07 07:49] LABS: VBG HCO3 17 mEq/L (21-27); VBG PCO2 29 mmHg (41-51); VBG PH 7.37 pH Units (7.32-7.42); VBG PO2 152 mmHg (25-50)
[2021-02-07] MEDS: Ringers Solution, Lactated 1,000 ML IVC SCH ×2 (08:35→20:48)
[2021-02-07] MEDS: lamoTRIgine 100 MG TABLET PO SCH (20:47)
[2021-02-07] MEDS: levETIRAcetam 250 MG TABLET PO SCH (20:47)
[2021-02-07] MEDS: Zonisamide 100 MG CAPSULE PO SCH (20:47)
[2021-02-08 01:55] LABS: Hematocrit 31.9 % (35.3-44.9); Hemoglobin 10.3 g/dL (11.5-15.4); Mean Corpuscular HGB Conc 32.3 g/dL (31.6-35.5); Mean Corpuscular Hemoglobin 29.3 pg (28.0-33.3); Mean Corpuscular Volume 90.9 fL (83.0-100.0); Mean Platelet Volume 9.6 fL (9.4-12.4); Platelet Count 174 K/mcL (140-400); Red Blood Count 3.51 M/mcL (3.82-4.97); Red Cell Distribution Width 13.7 % (11.5-14.5); White Blood Count 9.4 K/mcL (4.3-11.1)
[2021-02-08 02:14] LABS: BUN/Creatinine Ratio 16 (6-26); Blood Urea Nitrogen 12 mg/dL (6-20); Calcium 8.8 mg/dL (8.6-10.3); Carbon Dioxide 20 mEq/L (23-29); Chloride 107 mEq/L (98-107); Glucose 78 mg/dL (70-105); Magnesium 1.9 mg/dL (1.6-2.6); Osmolality,Calculated 279 (280-300); Potassium 4.1 mEq/L (3.5-5.1); Sodium 135 mEq/L (136-145); eGFR For African Americans > 60 (> 60); eGFR For Non-African Americans > 60 (> 60)
[2021-02-08] MEDS: *HR* Enoxaparin 40 MG/0.4 ML SYRINGE SQ SCH (05:33)
[2021-02-08] MEDS ORDERED: cefTRIAXone 1,000 MG in 0.9 % Sodium Chloride Mini Bag 100 ML IVPB SCH (08:00)
[2021-02-08] MEDS: lamoTRIgine 100 MG TABLET PO SCH ×3 (09:26→22:57)
[2021-02-08] MEDS: levETIRAcetam 250 MG TABLET PO SCH ×2 (09:29→22:57)
[2021-02-08] MEDS: Zonisamide 100 MG CAPSULE PO SCH ×2 (09:29→22:58)
[2021-02-08] MEDS ORDERED: Albumin 25% 25gram/100mL 25 GM/100 ML IV.SOLN IVPB ONE (22:55)
[2021-02-09] MEDS: *HR* Enoxaparin 40 MG/0.4 ML SYRINGE SQ SCH (05:55)
[2021-02-09] MEDS: levETIRAcetam 250 MG TABLET PO SCH ×2 (09:52→22:10)
[2021-02-09] MEDS: Zonisamide 100 MG CAPSULE PO SCH ×2 (09:53→22:10)
[2021-02-09] MEDS: lamoTRIgine 100 MG TABLET PO SCH ×3 (09:54→22:11)
[2021-02-10] MEDS: *HR* Enoxaparin 40 MG/0.4 ML SYRINGE SQ SCH (10:40)
[2021-02-10] MEDS: lamoTRIgine 100 MG TABLET PO SCH ×3 (10:41→23:39)
[2021-02-10] MEDS: Zonisamide 100 MG CAPSULE PO SCH ×2 (10:45→23:38)
[2021-02-10] MEDS: levETIRAcetam 250 MG TABLET PO SCH ×2 (11:17→23:37)
[2021-02-11] MEDS: *HR* Enoxaparin 40 MG/0.4 ML SYRINGE SQ SCH (07:24)
[2021-02-11] MEDS: levETIRAcetam 250 MG TABLET PO SCH ×2 (07:25→20:50)
[2021-02-11] MEDS: lamoTRIgine 100 MG TABLET PO SCH ×3 (07:25→21:00)
[2021-02-11] MEDS: Zonisamide 100 MG CAPSULE PO SCH ×2 (07:27→20:48)
[2021-02-11 09:33] LABS: Basophils # 0.1 K/mcL (0.0-0.2); Basophils % 0.9 %; Eosinophils # 0.2 K/mcL (0.0-0.6); Eosinophils % 1.7 %; Hematocrit 35.3 % (35.3-44.9); Hemoglobin 11.4 g/dL (11.5-15.4); Immature Granulocytes % 0.4 % (0-4); Lymphocytes # 4.5 K/mcL (0.6-4.6); Lymphocytes % 49.6 %; Mean Corpuscular HGB Conc 32.3 g/dL (31.6-35.5); Mean Corpuscular Hemoglobin 28.6 pg (28.0-33.3); Mean Corpuscular Volume 88.5 fL (83.0-100.0); Mean Platelet Volume 9.6 fL (9.4-12.4); Monocytes # 0.7 K/mcL (0.0-1.3); Monocytes % 8.2 %; Neutrophils # 3.5 K/mcL (1.6-8.9); Platelet Count 235 K/mcL (140-400); Red Blood Count 3.99 M/mcL (3.82-4.97); Segmented Neutrophils % 39.2 %
[2021-02-11 09:51] LABS: Alanine Aminotransferase 11 Units/L (7-52); Albumin 4.4 g/dL (3.5-5.7); Albumin/Globulin Ratio 1.9 (1.1-2.2); Alkaline Phosphatase 55 Units/L (34-104); Aspartate Amino Transferase 21 Units/L (13-39); BUN/Creatinine Ratio 19 (6-26); Bilirubin,Total 0.5 mg/dL (0.3-1.0); Blood Urea Nitrogen 17 mg/dL (6-20); Calcium 9.7 mg/dL (8.6-10.3); Carbon Dioxide 27 mEq/L (23-29); Chloride 106 mEq/L (98-107); Globulin 2.3 g/dL (2.4-3.5); Glucose 85 mg/dL (70-105); Osmolality,Calculated 289 (280-300); Potassium 4.4 mEq/L (3.5-5.1); Sodium 139 mEq/L (136-145); Total Protein 6.7 g/dL (6.4-8.9); eGFR For African Americans > 60 (> 60); eGFR For Non-African Americans > 60 (> 60)
[2021-02-11 14:02] LABS: Bilirubin,Urine Negative (Negative); Blood,Urine Trace (Negative); Clarity,Urine Clear (Clear); Color,Urine Light-Yellow (Yellow); Glucose,Urine (UA) Normal (Normal); Ketones,Urine Negative (Negative); Leukocyte Esterase,Urine Negative (Negative); Mucus,Urine Few per lpf (None-Few); Nitrite,Urine Negative (Negative); Protein,Urine Trace mg/dL (Neg-Trace); Specific Gravity,Urine > 1.030 (1.010-1.025); Urobilinogen,Urine Normal (Normal); WBC,Urine 0-3 per hpf (0-3)
[2021-02-12] MEDS: *HR* Enoxaparin 40 MG/0.4 ML SYRINGE SQ SCH (06:44)
[2021-02-12] MEDS: Zonisamide 100 MG CAPSULE PO SCH ×2 (07:47→21:22)
[2021-02-12] MEDS: lamoTRIgine 100 MG TABLET PO SCH ×3 (07:48→21:22)
[2021-02-12] MEDS: levETIRAcetam 250 MG TABLET PO SCH ×2 (07:49→21:20)
[2021-02-13] MEDS: *HR* Enoxaparin 40 MG/0.4 ML SYRINGE SQ SCH (05:17)
[2021-02-13] MEDS: levETIRAcetam 250 MG TABLET PO SCH (09:22)
[2021-02-13] MEDS: lamoTRIgine 100 MG TABLET PO SCH ×2 (09:23→12:43)
[2021-02-13] MEDS: Zonisamide 100 MG CAPSULE PO SCH (09:23)
[2021-02-13 15:24] LABS: Adenovirus Not Detected (Not Detect); Bordetella Pertussis Not Detected (Not Detect); Chlamydophila pneumoniae Not Detected (Not Detect); Coronavirus 229E Not Detected (Not Detect); Coronavirus HKU1 Not Detected (Not Detect); Coronavirus NL63 Not Detected (Not Detect); Coronavirus OC43 Not Detected (Not Detect); Human Metapneumovirus Not Detected (Not Detect); Human Rhinovirus/Enterovirus Not Detected (Not Detect); Influenza A Subtype 2009 H1 Not Detected (Not Detect); Influenza B Not Detected (Not Detect); Mycoplasma pneumoniae Not Detected (Not Detect); Parainfluenza Virus 1 Not Detected (Not Detect); Parainfluenza Virus 2 Not Detected (Not Detect); Parainfluenza Virus 3 Not Detected (Not Detect); Parainfluenza Virus 4 Not Detected (Not Detect); Respiratory Syncytial Virus Not Detected (Not Detect); SARS-CoV-2 Not Detected (Not Detect)
[2021-02-13 19:36] VITALS: BP 113/80; PULSE 80; TEMP 98.4; O2SAT 98
== END 2021-02-13 20:50 | DRG 562 ==
LOC: EMEROOARM 18:52 → 3BNU 18:52 → SUATTDRO 02-09 10:54
PROVIDERS: ADMIT Internal Medicine; ATTEND Registered Nurse